=== PATIENT | male | born 1975 | race Caucasian/White ===

== ENCOUNTER 2019-01-16 07:44 | Day surgery (SDC) | payer OTHER, SELFPAY ==
--- NOTE | 2019-01-16 | PATH_ITS ---
[facility] Accession Number: [id number] . 01 Material submitted: . body - POLYPS @25 CM . 02 Diagnosis: Colon, Polyps at 25 cm, Biopsy: Hyperplastic polyps. MRV 01/19/2019 0952 Local . 02 Electronically signed: . Zaira Driver MD, Pathologist NPI- [id number] . 01 Gross description: . POLYPS @25 CM: Received in formalin are 2 fragment(s) of mcclure, soft tissue measuring 0.2 x 0.2 x 0.2 cm to 0.3 x 0.3 x 0.3 cm submitted entirely in 1 cassette(s) /[facility] [place] 01/16/2019 1913 Local . 02 Pathologist provided ICD-10: K63.5 . 02 CPT . 864700 Performed at: 01 [facility] [address] [id number] MD Mamadou Donovan MD Phone: [phone] Performed at: 02 [facility] [address] [place], [place] [id number] MD Zaira Driver MD Phone: [phone]
[2019-01-16 08:16] VITALS: BP 121/77; PULSE 76; RESP 15; TEMP 36.3; O2SAT 96; BMI 37.3
[2019-01-16] MEDS: SODIUM CHLORIDE 0.9% 1,000 ML 200 ML IV (08:26)
--- NOTE | 2019-01-16 09:46 | PM.HP.1 ---
History of Present Illness History of Present Illness Date Patient Seen: 01/16/19 Time Patient Seen: 09:46 Chief complaint: [id number] Narrative: This is a 43-year-old man with ongoing rectal bleeding. He has been treated for hemorrhoids, but continues to have blood in his stool. He is here today for diagnostic colonoscopy to rule out another source of bleeding within the colon. He denies any abdominal pain or unexplained weight loss. ROS Thirteen system review is negative other than as mentioned below and in HPI. PE: GENERAL: Well groomed and cooperative. Appears stated age. Answers questions promptly and appropriately. Vital signs noted. HENT: Normocephalic, atraumatic. Hearing intact. Oral mucosa is pink and moist. EYES: Conjunctiva pink, sclera white, no periorbital swelling. CARDIOVASCULAR: Regular rate. No pedal edema. RESPIRATORY: Normal respiratory rate, breathing comfortably on room air. GASTROINTESTINAL: Abdomen soft and non-distended GENITALURINARY: No flank tenderness. MUSCULOSKELETAL: Equal tone and mass bilaterally. SKIN: Warm, dry, soft, appropriate color for ethnicity. No other lesions, rashes, or wounds. NEURO: Alert and Oriented X 3. No gross sensory deficits, or cognitive issues. PSYCH: Appropriate affect and mood. Patient History Medical History Cyst in hand (Acute) Internal hemorrhoids without complication (Acute) Pilonidal cyst (Acute) Rectal/anal hemorrhage (Acute) Family & Social History Family History Brother Ulcerative (chronic) enterocolitis Social History: household members spouse Tobacco & Substance use: Smoking Status Former smoker alcohol intake current Meds Home Medications and Allergies Home Medications Medication Instructions Recorded Confirmed Type ALBUTEROL SULFATE (Ventolin / 2 puff INH Q4H PRN #0 06/15/06 01/16/19 History Proventil) [ROLAIDS] 1 tab PO QIDP PRN #0 02/21/16 01/16/19 History Allergies Allergy/AdvReac Type Severity Reaction Status Date / Time No Known Drug Allergies Allergy Verified 01/16/19 08:16 Exam Vital Signs (past 8 hours): - 01/16/19 08:16 Temperature 97.3 F L Pulse Rate 76 Respiratory Rate 15 Blood Pressure 121/77 Pulse Oximetry 96 Oxygen Delivery Method Room Air Assessment & Plan Assessment and plan (1) Rectal/anal hemorrhage: Current visit: No Status: Acute Assessment & Plan narrative: This is a 43-year-old man with unexplained rectal bleeding, who is here for a diagnostic colonoscopy. Risks and benefits of colonoscopy including bleeding and perforation were discussed with the patient who desires to proceed with his colonoscopy procedure Quality VTE Deep Vein Thrombosis/Pulmonary Embolism Present on Admission: No
[2019-01-16] MEDS: MIDAZOLAM 5 MG/5 ML VIAL IV (10:27)
--- NOTE | 2019-01-16 10:27 | PM.OP.ENDO ---
Operative Date/Time/Diagnoses Date of procedure: 01/16/19 Time of procedure: 10:27 Pre-op diagnosis: Rectal bleeding Post-op diagnosis: other (Multiple polyps in the rectum, low-grade diverticulosis, grade 2-3 internal hemorrhoids without stigmata of recent bleeding) Procedure & Clinicians Study performed: Colonoscopy and polypectomy x3 with hot snare and cold forceps Same procedure as scheduled: Yes Indications: Unexplained rectal bleeding Surgeon: Piedad Figueroa Procedure Notes SCOAP/Timeout: Performed Procedure in detail: The patient was brought to the room and placed in left lateral decubitus position with all bony prominences padded. A time-out was performed and then the patient was given procedural sedation starting with 6 mg of Versed and [100] mcg of fentanyl. Vitals were monitored throughout the procedure and remained stable. Once adequately sedated the procedure was begun. A rectal exam was performed revealing [no abnormalities]. The colonoscope was then introduced to the rectum and advanced to the cecum in the usual fashion. []The cecum was identified by the appendiceal orifice, the mucosal try fold, and the ileocecal valve. The scope was then retracted while rotating side to side and examining each mucosal fold. There were scattered diverticula in the descending colon, with a few inverted diverticula with associated mucosal flaps. [3 moderate-sized sessile polyps were found at 25 cm in the rectum. They were removed with hot snare and cold forceps.] At the conclusion procedure retroflexion was performed and [small grade 2-3 internal hemorrhoids without stigmata of bleeding were seen]. The scope was then withdrawn from the rectum the procedure was concluded. The patient tolerated the procedure well was transferred to the PACU in stable condition. Scope withdrawal time: 24 Sedation minutes: 37 Findings: diverticulosis, internal hemorrhoids and polyp Specimen(s): other (Three 5-8 mm polyps from 25 cm in the rectum) Complications: none Impression: Polyps, diverticulosis, moderate internal hemorrhoids Post-procedure Recommendations: Colonscopy in 5 years Follow up: as needed Disposition: PACU
[2019-01-16] MEDS: fentaNYL 250 MCG/5 ML INJ IV (10:28)
[2019-01-16 10:32] VITALS: BP 114/84; PULSE 79; RESP 13; TEMP 35.8; O2SAT 95
[2019-01-16 10:37] VITALS: BP 120/79; PULSE 84; RESP 12; O2SAT 95
[2019-01-16 10:45] VITALS: BP 120/70; PULSE 87; RESP 13; O2SAT 94
[2019-01-16 10:47] VITALS: BP 120/83; PULSE 86; RESP 99; TEMP 36.1; O2SAT 14
[2019-01-16 11:08] VITALS: BP 120/78; PULSE 78; RESP 16; TEMP 36.4; O2SAT 94
== END 2019-01-16 11:29 | disposition home or self-care (01) ==
PROVIDERS: PCP Family Medicine Geriatric Medicine; Visit Provider Surgery
PROC: 0DJD8ZZ Inspection of Lower Intestinal Tract, Via Natural or Artificial Opening Endoscopic (ICD-10-PCS; CPT 45378; principal; 2019-01-16 09:45)
DX: K62.5 Hemorrhage of anus and rectum (principal); K57.30 Diverticulosis of large intestine without perforation or abscess without bleeding; K64.1 Second degree hemorrhoids; K63.5 Polyp of colon
CPT/HCPCS: 45385; 45380; 99152; 99153; J2250; J3010